=== PATIENT | male | born 1950 | race Caucasian/White ===

== ENCOUNTER 2017-12-09 18:47 | Emergency (ER) | payer OTHER ==
--- NOTE | 2017-12-09 19:09 | EDPHY ---
H & P Stated Complaint: left leg swelling for past month after trip to [place] Time Seen by Provider: 12/09/17 18:56 HPI/ROS: CHIEF COMPLAINT: Left leg swelling concerns over DVT HISTORY OF PRESENT ILLNESS: 67-year-old male return from a trip to [place] on November 02, 2017. This trip involved [address]. He notes continued left lower extremity edema and calf pain and cramping sensation. Comes to the ER for concerns over DVT. Denies: Chest pain, dyspnea, discoloration of lower extremity, trauma or fall, headache PRIMARY CARE PROVIDER: Dr. Chang Allen REVIEW OF SYSTEMS: A ten point review of systems was performed and is negative with the exception of the items mentioned in the HPI PAST MEDICAL & SURGICAL HISTORY: Hairy cell leukemia, in remission since early . SOCIAL HISTORY: Nonsmoker PHYSICAL EXAM (Prior to examination, patient consented to physical exam, hands were washed and my usual and customary physical exam procedures followed) 1) GENERAL: Well-developed, well-nourished, alert and oriented. Appears to be in no acute distress. 2) HEAD: Normocephalic, atraumatic 3) HEENT: Pupils equal, round, reactive to light bilaterally. Sclera anicteric. 4) NECK: Full range of motion, no meningeal signs. 5) LUNGS: Clear auscultation bilaterally, no wheezes, no rhonchi, no retractions. 6) HEART: Regular rate and rhythm, no murmur, no heave, no gallop. 7) ABDOMEN: No guarding, no rebound, no focal tenderness, 8) MUSCULOSKELETAL: Left lower extremity: Asymmetrical edema noted. Brisk DP and PT pulses which are symmetrical bilaterally. Normal pink coloration. Warm temperature, symmetrical. Negative Homans no palpable cord 9) BACK: No CVA tenderness, no midline vertebral tenderness, no fluctuance, no step-off, no obvious trauma, no visual or palpable abnormality. 10) SKIN: No rash, no petechiae. 11) Psychiatric: Patient is oriented X 3, there is no agitation. DIFFERENTIAL DIAGNOSIS: In no particular include but limited to dependent edema, DVT, arterial occlusion - Medical/Surgical History Hx Asthma: No Hx Chronic Respiratory Disease: No Hx Diabetes: No Hx Cardiac Disease: No Hx Renal Disease: No Hx Cirrhosis: No Hx Alcoholism: No Hx HIV/AIDS: No Hx Splenectomy or Spleen Trauma: No Other PMH: leukemia 1998, 4 knee sx, spinal fusion, right elbow bursa removal - Social History Smoking Status: Never smoked Constitutional: Initial Vital Signs Temperature (C) 36.6 C 12/09/17 18:50 Heart Rate 60 12/09/17 18:50 Respiratory Rate 18 12/09/17 18:50 Blood Pressure 144/89 H 12/09/17 18:50 O2 Sat (%) 95 12/09/17 18:50 O2 Delivery Mode Room Air Allergies/Adverse Reactions: No Known Allergies Allergy (Verified 12/09/17 18:49) Home Medications: Medication Instructions Recorded Rivaroxaban [Xarelto 15mg (*)] 15 mg PO BID #42 tab 12/09/17 Medical Decision Making - Diagnostics Imaging Results: Imaging Impressions Extremity Venous Study 12/09/17 18:59 Impression: 1. DVT extending from the proximal to mid left femoral vein through the calf veins. Findings discussed with Alexandru Lewis at 19:56 hour, 12/09/2017. images reviewed myself ED Course/Re-evaluation: 7:08 p.m.: Will obtain ultrasound. Care of patient under supervision of secondary supervising physician Dr Nichole . Discussed with the patient his findings positive for DVT. I will plan on consultation with his oncologist given his history of hairy cell leukemia which is currently in remission 8:33 p.m.: Phone consultation with Dr. Alvarez, on-call for Dr. Allen. Discussed the patient's hemogram. She is in agreement with starting the patient on Xarelto and follow up in the office next week (today is Tuesday night) . - Data Points Laboratory Results: Laboratory Results 12/09/17 20:05 12/09/17 20:05 12/09/17 12/09/17 12/09/17 20:05 20:05 20:05 WBC 2.61 10^3/uL L 10^3/uL (3.80-9.50) RBC 3.95 10^6/uL L 10^6/uL (4.40-6.38) Hgb 13.6 g/dL L g/dL (13.7-17.5) Hct 38.4 % L % (40.0-51.0) MCV 97.2 fL fL (81.5-99.8) MCH 34.4 pg H pg (27.9-34.1) MCHC 35.4 g/dL g/dL (32.4-36.7) RDW 13.0 % % (11.5-15.2) Plt Count 112 10^3/uL L 10^3/uL (150-400) MPV 8.6 fL L fL (8.7-11.7) Neut % (Auto) 28.3 % L % (39.3-74.2) Lymph % (Auto) 69.0 % H % (15.0-45.0) [place] % (Auto) 1.5 % L % (4.5-13.0) Eos % (Auto) 0.8 % % (0.6-7.6) Baso % (Auto) 0.4 % % (0.3-1.7) Nucleat RBC Rel Count 0.0 % % (0.0-0.2) Absolute Neuts (auto) 0.74 10^3/uL L 10^3/uL (1.70-6.50) Absolute Lymphs (auto) 1.80 10^3/uL 10^3/uL (1.00-3.00) Absolute Monos (auto) 0.04 10^3/uL L 10^3/uL (0.30-0.80) Absolute Eos (auto) 0.02 10^3/uL L 10^3/uL (0.03-0.40) Absolute Basos (auto) 0.01 10^3/uL L 10^3/uL (0.02-0.10) Absolute Nucleated RBC 0.00 10^3/uL 10^3/uL (0-0.01) Immature Gran % 0.0 % % (0.0-1.1) Seg Neutrophils % TNP Immature Gran # 0.00 10^3/uL 10^3/uL (0.00-0.10) RBC/WBC/PLT Morphology TNP Platelet Estimate TNP PT 13.4 SEC SEC (12.0-15.0) INR 1.00 (0.83-1.16) APTT 24.3 SEC SEC (23.0-38.0) Sodium 143 mEq/L mEq/L (135-145) Potassium 4.5 mEq/L mEq/L (3.5-5.2) Chloride 105 mEq/L mEq/L (97-110) Carbon Dioxide 28 mEq/l mEq/l (22-31) Anion Gap 10 mEq/L mEq/L (8-16) BUN 15 mg/dL mg/dL (7-23) Creatinine 0.9 mg/dL mg/dL (0.7-1.3) Estimated GFR > 60 Glucose 88 mg/dL mg/dL (70-100) Calcium 9.6 mg/dL mg/dL (8.5-10.4) Medications Given: Discontinued Medications Rivaroxaban (Xarelto) 15 mg PO EDNOW ONE Stop: 12/09/17 20:42 Last Admin: 12/09/17 20:55 Dose: 15 mg Departure - Departure Disposition: Home, Routine, Self-Care Clinical Impression: Left leg DVT Qualifiers: Affected thrombotic vein of extremity: femoral Chronicity: acute Qualified Code (s): I82.412 - Acute embolism and thrombosis of left femoral vein Condition: Good Instructions: Deep Vein Thrombosis (ED) Additional Instructions: Return to the ER if you develop discoloration to the leg, chest pain shortness of breath, headaches or any other symptoms that concern you. Referrals: Chang Allen MD [Primary Care Provider] - 2-3 days, call for appt. Prescriptions: Rivaroxaban [Xarelto 15mg (*)] 15 mg PO BID #42 tab
[2017-12-09 20:19] LABS: PLATELET COUNT 112 10^3/uL (150-400)
[2017-12-09 20:26] LABS: PROTIME(PATIENT) 13.4 SEC (12.0-15.0)
[2017-12-09] MEDS ORDERED: RIVAROXABAN 15 MG TAB ONE (20:53)
[2017-12-09] MEDS: RIVAROXABAN 15 MG TAB PO ONE ×2 (20:54→20:55)
[2017-12-09 21:22] VITALS: BP 128/85
== END 2017-12-09 21:10 | disposition home or self-care (01) ==
DX: I82.412 Acute embolism and thrombosis of left femoral vein (principal)

== ENCOUNTER → 2018-04-20 | Outpatient (CLI) | payer OTHER | LOC: FIMAGING 16:13 | PROVIDERS: ATTEND Internal Medicine Hematology & Oncology | DX: I82.432 Acute embolism and thrombosis of left popliteal vein (principal); C91.41 Hairy cell leukemia, in remission ==

== ENCOUNTER → 2018-08-17 | Outpatient (CLI) | payer OTHER | LOC: FIMAGING 16:57 | PROVIDERS: ATTEND Internal Medicine Hematology & Oncology | DX: I82.442 Acute embolism and thrombosis of left tibial vein (principal) ==

== ENCOUNTER → 2018-11-24 | Outpatient (CLI) | payer OTHER | LOC: FIMAGING 13:44 | PROVIDERS: ATTEND Internal Medicine Hematology & Oncology | DX: I80.12 Phlebitis and thrombophlebitis of left femoral vein (principal); I80.232 Phlebitis and thrombophlebitis of left tibial vein; C91.41 Hairy cell leukemia, in remission ==